=== PATIENT | female | born 1960 | race Two or more races ===

== ENCOUNTER 2020-08-31 19:16 | Emergency (ER) | payer OTHER ==
[~2020-08-31] VITALS: Ht 157.5 cm; Wt 55.8 kg
[2020-08-31 23:06] VITALS: BP 158/77
== END 2020-08-31 23:49 | disposition home or self-care (01) ==
LOC: ER 19:16 → EDBD 19:16 → ER 23:49
DX: S13.9XXA Sprain of joints and ligaments of unspecified parts of neck, initial encounter (principal); S43.402A Unspecified sprain of left shoulder joint, initial encounter; E11.9 Type 2 diabetes mellitus without complications; V43.62XA Car passenger injured in collision with other type car in traffic accident, initial encounter; Y93.89 Activity, other specified; Y92.410 Unspecified street and highway as the place of occurrence of the external cause; Y99.8 Other external cause status
CPT/HCPCS: 70450; 72125; 73030; 93005